=== PATIENT | female | born 1970 | race African-American/Black ===

== ENCOUNTER 2019-05-14 01:40 | Emergency (ER) | payer BC, OTHER ==
[~2019-05-14] VITALS: Ht 167.6 cm; Wt 70.3 kg
--- NOTE | 2019-05-14 02:00 | NUR ---
TO BED 2 BIB PARAMEDICS C/O SUDDEN ONSET ACUTE ABD PAIN W/NAUSEA X1 HOUR, DENIES N/V/D. PT REPORTS "IT FEEL LIKE CHILDBIRTH". PT AAOX4 NO ACUTE DISTRESS NOTED, RESP EVEN AND UNLABORED. PT UNABLE TO PROVIDE URINE SAMPLE AT THIS TIME.
[2019-05-14] MEDS ORDERED: ACETAMINOPHEN ES 500 MG TABLET ONE (02:12)
--- NOTE | 2019-05-14 02:17 | NUR ---
PT REFUSED 1000MG TYLENOL. MADE AWARE.
[2019-05-14] MEDS ORDERED: MORPHINE SULFATE INJ 4 MG/ML DISP.SYRIN ONE (02:18)
[2019-05-14] MEDS ORDERED: ONDANSETRON HCL/PF 4 MG/2 ML VIAL ONE (02:18)
[2019-05-14 02:19] LABS: BASOPHILS % (AUTO) 0.6 % (0.0-2.0); EOSINOPHILS % (AUTO) 1.2 % (0.0-6.0); HEMATOCRIT 39 % (33-45); LYMPHOCYTES # (AUTO) 2.8 /CMM (0.8-4.8); LYMPHOCYTES % (AUTO) 56.2 % (20.0-44.0); MEAN CORPUSCULAR HGB CONC 33 g/dl (31.0-36.0); MEAN CORPUSCULAR VOLUME 94 fL (82-100); MONOCYTES # (AUTO) 0.4 /CMM (0.1-1.30); MONOCYTES % (AUTO) 8.5 % (2.0-12.0); NEUTROPHILS # (AUTO) 1.7 /CMM (1.8-8.9); NEUTROPHILS % (AUTO) 33.5 % (43.0-81.0); PLATELET COUNT (AUTO) 197 /CMM (150-450); RED BLOOD CELL COUNT(AUTO) 4.14 MIL/uL (4.0-5.2)
[2019-05-14 02:27] LABS: CALCIUM, SERUM 8.8 mg/dL (8.5-10.1); CREATININE 0.8 mg/dL (0.6-1.3); POTASSIUM 3.6 mmol/L (3.5-5.1)
--- NOTE | 2019-05-14 02:27 | NUR ---
PT MEDICATED ORDERED.
[2019-05-14] MEDS ORDERED: ONDANSETRON HCL/PF 4 MG/2 ML VIAL IVP ONE (02:30)
[2019-05-14] MEDS ORDERED: IV NS 0.9% 1,000 ML BAG IV ONE (02:30)
[2019-05-14] MEDS ORDERED: MORPHINE SULFATE INJ 2 MG/ML DISP.SYRIN IV ONE (02:30)
[2019-05-14] MEDS ORDERED: ACETAMINOPHEN ES 500 MG TABLET PO ONE (02:30)
[2019-05-14 02:32] LABS: ALBUMIN 3.2 g/dL (3.4-5.0); BILIRUBIN,DIRECT 0.1 mg/dL (0.0-0.2); BILIRUBIN,TOTAL 0.3 mg/dL (0.2-1.0); TOTAL PROTEIN, SERUM 6.8 g/dL (6.4-8.2)
--- NOTE | 2019-05-14 02:53 | NUR ---
PT TRANSPORTED TO RADIOLOGY FOR CT ABD/PELVIS.
--- NOTE | 2019-05-14 03:05 | NUR ---
PT BACK FROM RADIOLOGY. PENDING CT ABDOMEN RESULT.
--- NOTE | 2019-05-14 03:06 | NUR ---
PT AMBULATORY TO THE BATHROOM TO PROVIDE URINE SAMPLE.
[2019-05-14 03:38] LABS: APPEARANCE,URINE Clear (CLEAR); BILIRUBIN,URINE Negative (NEGATIVE); BLOOD, URINE Negative Ery/uL (NEGATIVE); COLOR,URINE Yellow (YELLOW); KETONES,URINE Negative (NEGATIVE); LEUKOCYTE ESTERASE ,URINE Small (NEGATIVE); NITRITE, URINE Negative (NEGATIVE); PROTEIN,URINE Negative (NEGATIVE); UGLUCOSE Negative (NEGATIVE); UROBILINOGEN,URINE 0.2 EU/dL (0.2)
[2019-05-14 04:32] LABS: BACTERIA,URINE Few /HPF (None Seen); RBC,URINE 0-2 /HPF (0-2); SQUAMOUS EPITHELIAL CELL,UR Few /HPF (None Seen)
--- NOTE | 2019-05-14 05:00 | NUR ---
IV removed. Catheter intact and site benign. Pressure and 4x4 applied to site. No bleeding noted. Patient discharged to home in stable condition. Written and verbal after care instructions given. Patient verbalizes understanding of instruction. ambulatory with a steady gait noted. pt aaox4 no acute distress noted, resp even and unlabored. advice pt not to drive or operate any mahcinery due to pt was given narcotic medicine. pt verbalize understanding.
[2019-05-14 05:02] VITALS: BP 116/60
== END 2019-05-14 05:03 | disposition home or self-care (01) ==
LOC: ER 01:42
DX: R10.9 Unspecified abdominal pain (principal); R11.0 Nausea
CPT/HCPCS: 36415; 74176; 80048; 80076; 81001; 83690; 84703; 85025; 87086; 96374; 96375; 99284; J2270; J2405; J7030; 81000-TC